=== PATIENT | male | born 1965 | race African-American/Black ===

== ENCOUNTER 2018-05-26 10:06 | Inpatient (IN) | payer MEDICAID ==
[~2018-05-26] VITALS: Ht 188 cm; Wt 92.5 kg
[2018-05-26] MEDS ORDERED: KETOROLAC 60MG/2ML VIAL IM ONE (12:45)
[2018-05-26] MEDS ORDERED: SODIUM CHLORIDE 0.9% 1,000 ML IV ONE (14:06)
[2018-05-26 15:22] LABS: BASOPHILS % 0.2 % (0.0-2.0); EOSINOPHILS % 1.4 % (0.0-5.0); HEMATOCRIT. 32.3 % (42.0-52.0); HEMOGLOBIN. 10.6 g/dL (14.0-18.0); MEAN CORPUSCULAR VOLUME 94.5 fL (80.0-94.0); MEAN PLATELET VOLUME 7.7 fl (7.4-10.4); MONOCYTES % 8.5 % (2.0-8.0); NEUTROPHILS % 69.9 % (40.0-76.0); PLATELET 369 x1000/uL (130-400); RED BLOOD CELL COUNT 3.42 mill/uL (4.7-6.1); RED CELL DISTRIBUTION WIDTH 13.7 % (11.6-14.6)
[2018-05-26 15:28] LABS: CHLORIDE 107 mEq/L (98-107)
[2018-05-26 15:30] LABS: PARTIAL THROMBOPLASTIN TIME 26.9 sec (23.4-31.0); PROTHROMBIN TIME 10.4 sec (9.1-11.1)
[2018-05-26 15:33] LABS: ETHANOL BLOOD < 10 mg/dL
[2018-05-26 15:38] LABS: CREATINE KINASE 705 IU/L (39-308)
[2018-05-26 15:40] LABS: CREATINE KINASE MB FRACTION 6.7 ng/mL (0.5-3.6)
[2018-05-26 17:25] LABS: CLARITY URINE CLEAR (CLEAR); COLOR URINE YELLOW (YELLOW); KETONES URINE NEGATIVE (NEGATIVE); LEUKOCYTE ESTERASE URINE NEGATIVE (NEGATIVE); NITRITE URINE NEGATIVE (NEGATIVE); OCCULT BLOOD URINE NEGATIVE (NEGATIVE); PROTEIN URINE NEGATIVE (NEGATIVE); SPECIFIC GRAVITY URINE 1.015 (1.005-1.030)
[2018-05-26 17:34] LABS: *AMPHETAMINES SCREEN URINE NEGATIVE (NEGATIVE); *BARBITURATES SCREEN URINE NEGATIVE (NEGATIVE)
[2018-05-26 17:35] LABS: *BENZODIAZEPINES SCREEN URINE NEGATIVE (NEGATIVE); *COCAINE SCREEN URINE PRESUMTIVE POSITIVE (NEGATIVE); CANNABINOID URINE SCREEN PRESUMTIVE POSITIVE (NEGATIVE); METHADONE URINE SCREEN NEGATIVE (NEGATIVE); OPIATES URINE SCREEN NEGATIVE (NEGATIVE); PHENCYCLIDINE URINE SCREEN NEGATIVE (NEGATIVE)
[2018-05-26 17:45] VITALS: BP 123/52
[2018-05-26 18:07] VITALS: BP 123/52
[2018-05-26 18:16] VITALS: BP 123/52
[2018-05-26 20:00] VITALS: BP 127/70
[2018-05-26] MEDS ORDERED: DIPHENHYDRAMINE 50MG/ML VIAL IV PRN (20:30)
[2018-05-26] MEDS ORDERED: ONDANSETRON HCL 4MG/2ML INJ IV PRN (20:30)
[2018-05-26] MEDS ORDERED: MAGNESIUM/ALUMINUM HYDROXIDE/SIMETHICONE 30ML UDC PO PRN (20:30)
[2018-05-26] MEDS ORDERED: CLONIDINE 0.1MG TABLET PO PRN (20:30)
[2018-05-26] MEDS ORDERED: KETOROLAC 30MG/ML VIAL IV PRN (20:30)
[2018-05-26] MEDS ORDERED: ACETAMINOPHEN 325MG TABLET PO PRN (20:30)
[2018-05-26] MEDS ORDERED: IPRATROPIUM/ALBUTEROL 0.5-3(2.5)MG/3ML NEB INH PRN (20:30)
[2018-05-26] MEDS: SODIUM CHLORIDE 0.9% INJ 3ML FLUSH IVF SCH (21:39)
[2018-05-26] MEDS: ENOXAPARIN 40MG/0.4ML SYR SUBCUT SCH (21:41)
[2018-05-27] VITALS: BP 125/70
[2018-05-27 04:00] VITALS: BP 121/69
[2018-05-27] MEDS: SODIUM CHLORIDE 0.9% INJ 3ML FLUSH IVF SCH ×3 (05:37→22:00)
[2018-05-27 08:00] VITALS: BP 126/69
[2018-05-27 12:00] VITALS: BP 128/80
[2018-05-27 16:00] VITALS: BP 128/81
[2018-05-27] MEDS ORDERED: IBUPROFEN 600MG TABLET PO PRN (17:15)
[2018-05-27 20:00] VITALS: BP 115/64
[2018-05-27] MEDS: ENOXAPARIN 40MG/0.4ML SYR SUBCUT SCH (20:05)
[2018-05-28] VITALS: BP 120/68
[2018-05-28 04:00] VITALS: BP 125/75
[2018-05-28] MEDS: SODIUM CHLORIDE 0.9% INJ 3ML FLUSH IVF SCH ×2 (04:57→13:10)
[2018-05-28 08:00] VITALS: BP 122/72
[2018-05-28 12:00] VITALS: BP 120/67
[2018-05-28 16:00] VITALS: BP 128/63
[2018-05-28 16:15] VITALS: BP 120/67
== END 2018-05-28 17:53 | disposition home or self-care (01) | DRG 384 ==
LOC: ER 10:06 → ENRESERV 15:26 → CANRESERV 15:26 → 7WST 16:27 → EDBEDREQ 16:36 → EDBEDREQTM 16:36 → ENRESERV 17:18
PROVIDERS: ADMIT Internal Medicine; ATTEND Internal Medicine
DX: S70.02XA Contusion of left hip, initial encounter (principal); E44.0 Moderate protein-calorie malnutrition; D64.9 Anemia, unspecified; F12.10 Cannabis abuse, uncomplicated; F17.200 Nicotine dependence, unspecified, uncomplicated; F14.10 Cocaine abuse, uncomplicated; W18.39XA Other fall on same level, initial encounter; Y93.89 Activity, other specified; Y92.89 Other specified places as the place of occurrence of the external cause; Z59.0 Homelessness; Z88.0 Allergy status to penicillin; Y99.8 Other external cause status
CPT/HCPCS: 36415; 71045; 73502; 80305; 82550; 82553; 82962; 83735; 83880; 84484; 93005; 93970; 96360; 96372; 97162; 99285; J1650; J1885; J7030

== ENCOUNTER 2019-04-18 08:38 | Inpatient (IN) | payer MEDICAID, OTHER ==
[~2019-04-18] VITALS: Ht 188 cm; Wt 81.6 kg
[2019-04-18] MEDS ORDERED: ACETAMINOPHEN 325MG TABLET PO STA (09:13)
[2019-04-18] MEDS ORDERED: SODIUM CHLORIDE 0.9% 1,000 ML IV ONE (09:13)
[2019-04-18 10:35] LABS: BASOPHILS % 0.2 % (0.0-2.0); EOSINOPHILS % 1.9 % (0.0-5.0); HEMATOCRIT. 38.4 % (42.0-52.0); HEMOGLOBIN. 12.8 g/dL (14.0-18.0); LYMPHOCYTES % 9.1 % (20.0-50.0); MEAN CORPUSCULAR HEMOGLOBIN 31.2 pg (28.0-32.0); MEAN CORPUSCULAR VOLUME 93.6 fL (80.0-94.0); MEAN PLATELET VOLUME 8.5 fl (7.4-10.4); MONOCYTES % 7.2 % (2.0-8.0); NEUTROPHILS % 81.6 % (40.0-76.0); PLATELET 329 x1000/uL (130-400); RED CELL DISTRIBUTION WIDTH 13.8 % (11.6-14.6)
[2019-04-18 10:37] LABS: CLARITY URINE CLEAR (CLEAR); COLOR URINE YELLOW (YELLOW); KETONES URINE NEGATIVE (NEGATIVE); LEUKOCYTE ESTERASE URINE NEGATIVE (NEGATIVE); NITRITE URINE NEGATIVE (NEGATIVE); OCCULT BLOOD URINE NEGATIVE (NEGATIVE); PH URINE >=9.0 (4.5-8.0); PROTEIN URINE NEGATIVE (NEGATIVE); SPECIFIC GRAVITY URINE 1.017 (1.005-1.030); UROBILINOGEN URINE 0.2 E.U./dL (0.2-1.0)
[2019-04-18 10:39] LABS: CHLORIDE 102 mEq/L (98-107)
[2019-04-18 10:40] LABS: PROTHROMBIN TIME 10.1 sec (9.6-11.0)
[2019-04-18] MEDS ORDERED: LEVOFLOXACIN 750MG PREMIX 150 ML IV ONE (11:15)
[2019-04-18 17:30] VITALS: BP 139/78
[2019-04-18] MEDS ORDERED: SODIUM CHLORIDE 0.9% 1,000 ML IV SCH (18:08)
[2019-04-18] MEDS ORDERED: ONDANSETRON HCL 4MG/2ML INJ IV PRN (18:15)
[2019-04-18] MEDS ORDERED: IPRATROPIUM/ALBUTEROL 0.5-3(2.5)MG/3ML NEB HHN SCH (19:00)
[2019-04-18] MEDS ORDERED: ENOXAPARIN 40MG/0.4ML SYR SUBCUT SCH (19:00)
[2019-04-18 20:00] VITALS: BP 128/82
[2019-04-18] MEDS ORDERED: PNEUMOCOCCAL 23-VAL P-SAC VAC 0.5 ML IM ONE (20:00)
[2019-04-18] MEDS ORDERED: INFLUENZA VIRUS VACCINE(AFLURIA) 0.5ML SYR IM ONE (20:00)
[2019-04-18] MEDS: ACETAMINOPHEN 325MG TABLET PO PRN (21:44)
[2019-04-19] VITALS: BP 125/77
[2019-04-19 04:00] VITALS: BP 134/83
[2019-04-19] MEDS: ACETAMINOPHEN 325MG TABLET PO PRN (06:22)
[2019-04-19 07:17] LABS: CHLORIDE 105 mEq/L (98-107)
[2019-04-19 07:18] LABS: BASOPHILS % 0.3 % (0.0-2.0); HEMATOCRIT. 37.7 % (42.0-52.0); HEMOGLOBIN. 12.8 g/dL (14.0-18.0); LYMPHOCYTES % 11.1 % (20.0-50.0); MEAN CORPUSCULAR HEMOGLOBIN 31.5 pg (28.0-32.0); MEAN PLATELET VOLUME 8.5 fl (7.4-10.4); MONOCYTES % 6.8 % (2.0-8.0); NEUTROPHILS % 78.8 % (40.0-76.0); PLATELET 310 x1000/uL (130-400); RED BLOOD CELL COUNT 4.06 mill/uL (4.7-6.1); RED CELL DISTRIBUTION WIDTH 14.1 % (11.6-14.6)
[2019-04-19 08:07] VITALS: BP 115/75
[2019-04-19 12:10] VITALS: BP 117/74
[2019-04-19 16:55] VITALS: BP 112/77
[2019-04-19 19:07] VITALS: BP 120/77
== END 2019-04-19 19:45 | disposition short-term general hospital (02) | DRG 720 ==
LOC: ER 08:53 → ENRESERV 16:15 → 6EST 17:40
PROVIDERS: ADMIT Internal Medicine; ATTEND Internal Medicine
DX: A41.9 Sepsis, unspecified organism (principal); J18.9 Pneumonia, unspecified organism; I69.354 Hemiplegia and hemiparesis following cerebral infarction affecting left non-dominant side; Z59.0 Homelessness; Z88.0 Allergy status to penicillin
CPT/HCPCS: 36415; 71045; 80048; 80053; 81003; 83605; 84145; 84484; 85025; 90686; 90732; 93005; 93970; 96365; 96368; 97162; 99285; J1956; J7030

== ENCOUNTER 2022-11-30 11:11 | Emergency (ER) | payer OTHER ==
[~2022-11-30] VITALS: Ht 177.8 cm; Wt 82.0 kg
[2022-11-30 11:16] VITALS: O2SAT 98
[2022-11-30 11:41] LABS: BASOPHILS % 0.5 % (0.0-2.0); EOSINOPHILS % 1.2 % (0.0-5.0); HEMATOCRIT. 37.9 % (42.0-52.0); HEMOGLOBIN. 12.5 g/dL (14.0-18.0); LYMPHOCYTES % 10.1 % (20.0-50.0); MEAN CORPUSCULAR HEMOGLOBIN 30.2 pg (28.0-32.0); MEAN CORPUSCULAR HGB CONC 33.1 g/dL (31.0-37.0); MEAN CORPUSCULAR VOLUME 91.5 fL (80.0-94.0); MEAN PLATELET VOLUME 8.4 fl (7.4-10.4); MONOCYTES % 12.5 % (2.0-8.0); NEUTROPHILS % 75.7 % (40.0-76.0); PLATELET 270 x1000/uL (130-400); RED BLOOD CELL COUNT 4.14 mill/uL (4.7-6.1); RED CELL DISTRIBUTION WIDTH 14.5 % (11.6-14.6); WHITE BLOOD COUNT 7.6 x1000/uL (4.5-11.0)
[2022-11-30 11:51] LABS: ALBUMIN 3.6 g/dL (3.4-5.0); CALCIUM 8.9 mg/dL (8.5-10.1); CHLORIDE 112 mEq/L (98-107); INDEX HEMOLYSI 1 (1-3); INDEX ICTERIC 1 (1-4); INDEX LIPEMIC 1 (1-3); POTASSIUM 3.3 mEq/L (3.5-5.1); SODIUM 137 mEq/L (136-145)
[2022-11-30 11:55] LABS: PROTHROMBIN TIME 10.6 sec (9.6-11.0)
[2022-11-30 11:59] LABS: ALANINE AMINOTRANSFERASE 36 IU/L (13-61); ASPARTATE AMINOTRANSFERASE 21 IU/L (15-37); BILIRUBIN TOTAL 0.4 mg/dL (0.1-1.0); CARBON DIOXIDE 22 mEq/L (21-32); GLUCOSE 114 mg/dL (70-105); PROTEIN TOTAL 7.7 g/dL (6.0-8.3); TROPONIN I HIGH SENSITIVITY 7 ng/L (<78); UREA NITROGEN BLOOD 9 mg/dL (7-21)
[2022-11-30 17:27] VITALS: BP 140/90; PULSE 95; RESP 19; TEMP 98.4
== END 2022-11-30 17:49 | disposition short-term general hospital (02) ==
LOC: ER 11:11 → CANBEDREQ 13:53 → ER 17:49
DX: R53.1 Weakness (principal); R51.9 Headache, unspecified; I10 Essential (primary) hypertension; Z88.0 Allergy status to penicillin; Z86.73 Personal history of transient ischemic attack (TIA), and cerebral infarction without residual deficits
CPT/HCPCS: 80053; 83605; 85025; 85610; 87040; 84484; 36415; 84145; 71045; 72170; 70450; 72125; 93005; 99285; Z7610